=== PATIENT | male | born 1970 | race American Indian/Alaskan Native ===

== ENCOUNTER 2018-02-18 07:07 | Emergency (ER) | payer MEDICARE, MEDICAID ==
[2018-02-18 08:08] LABS: BASO # 0.1 K/uL (0.0-0.2); BASO % 0.9 % (0.0-2.0); EOS # 0.2 K/uL (0.0-0.7); EOS % 3.1 % (0.0-4.0); LYMPH # 2.7 K/uL (1.0-4.3); LYMPH % 44.5 % (20.0-40.0); MEAN CELL VOLUME 81.8 fL (80.0-94.0); MEAN CORPUSCULAR HEMOGLOBIN 27.4 pg (27.0-31.0); MEAN CORPUSCULAR HGB CONC 33.5 g/dL (33.0-37.0); MEAN PLATELET VOLUME 8.6 fL (7.2-11.7); MONO # 0.7 K/uL (0.0-0.8); MONO % 10.6 % (0.0-10.0); NEUT # 2.5 K/uL (1.8-7.0); NEUT % 40.9 % (50.0-75.0); RBC 5.48 Mil/uL (4.40-5.90); RED CELL DISTRIBUTION WIDTH 15.2 % (11.5-14.5); WHITE BLOOD COUNT 6.2 K/uL (4.8-10.8)
[2018-02-18 08:29] LABS: ALBUMIN 3.8 g/dL (3.5-5.0); ALT/SGPT 22 U/L (21-72); AST/SGOT 26 U/L (17-59); BLOOD UREA NITROGEN 20 mg/dL (9-20); CALCIUM 9.1 mg/dl (8.6-10.4); GFR AFRICAN-AMERICAN > 60; GFR NON-AFRICAN AMERICAN > 60
[2018-02-18 08:41] LABS: CK-MB 0.68 ng/mL (0.0-3.38)
--- NOTE | 2018-02-18 09:32 | C.PDOC ---
History Of Present Illness 47-year-old male with PMHx of HIV (compliant with HAART) presents to the emergency department with complaints of three-day duration of intermittent palpitations, described as fluttering on the right side of chest. He notices the symptoms more when he lies down. Patient denies cough, fever, SOB, chest pain, abdominal pain, nausea/vomiting, rash. Time Seen by Provider: 02/18/18 07:23 Chief Complaint (Nursing): Palpitations History Per: Patient History/Exam Limitations: no limitations Current Symptoms Are (Timing): Better Severity: Mild Past Medical History Reviewed: Historical Data, Nursing Documentation, Vital Signs Vital Signs: Last Vital Signs Temp 97.6 F 02/18/18 09:47 Pulse 56 L 02/18/18 09:47 Resp 16 02/18/18 09:47 BP 127/85 02/18/18 09:47 Pulse Ox 96 02/18/18 18:11 - Medical History PMH: HIV Family History: States: No Known Family Hx - Social History Hx Tobacco Use: No Hx Alcohol Use: No Hx Substance Use: No - Immunization History Hx Tetanus Toxoid Vaccination: No Hx Influenza Vaccination: No Hx Pneumococcal Vaccination: No Review Of Systems Except As Marked, All Systems Reviewed And Found Negative. Constitutional: Negative for: Fever, Chills Cardiovascular: Positive for: Palpitations. Negative for: Chest Pain Respiratory: Negative for: Cough, Shortness of Breath, SOB with Excertion Gastrointestinal: Negative for: Nausea, Vomiting, Abdominal Pain, Diarrhea Musculoskeletal: Positive for: Back Pain Skin: Negative for: Rash Neurological: Negative for: Weakness, Numbness Physical Exam - Physical Exam Appears: Well, Non-toxic, No Acute Distress Skin: Normal Color, Warm, Dry, No Diaphoretic, No Rash Head: Normacephalic Eye(s): bilateral: Normal Inspection Oral Mucosa: Moist Neck: Normal ROM Cardiovascular: Rhythm Regular (Tachycardic) Respiratory: Normal Breath Sounds, No Accessory Muscle Use, No Rales, No Rhonchi , No Wheezing Gastrointestinal/Abdominal: Normal Exam, Bowel Sounds, Soft, No Tenderness Extremity: Normal ROM, No Pedal Edema, No Calf Tenderness, No Swelling Neurological/Psych: Oriented x3 ED Course And Treatment - Laboratory Results Result Diagrams: 02/18/18 07:59 02/18/18 07:59 ECG: Interpreted By Me, Viewed By Me (sinus bradycardia 52bpm, normal axis, LVH , no acute ST/T wave changes) ECG Interpretation: Normal O2 Sat by Pulse Oximetry: 96 (RA) Pulse Ox Interpretation: Normal - Radiology CXR: Interpreted by Me, Viewed By Me CXR Interpretation: Yes: No Acute Disease. No: Infiltrates Progress Note: Bloodwork, EKG and CXR ordered and reviewed. Reevaluation Time: 09:35 Reassessment Condition: Improved (On reassessment, patient is resting comfortably, in no pain/distress. Blood work WNL. Patient is asymptomativc, well appearing and comfortable being discharged home. He was instructed to follow up with PMD in 1-2 days, and understands he should return to ED if symptoms worsen.) Disposition Counseled Patient/Family Regarding: Studies Performed, Diagnosis, Need For Followup - Disposition Referrals: Zachary Sharp MD [Medical Doctor] - Disposition: HOME/ ROUTINE Disposition Time: 09:35 Condition: STABLE Additional Instructions: FOLLOW UP WITH YOUR DOCTOR IN 1-2 DAYS, AND WITH CARDIOLOGY WITHIN 1 WEEK RETURN TO ER IF SYMPTOMS WORSEN Instructions: Palpitations (DC) Forms: [employer] (Ukrainian) Print Language: [place] - Clinical Impression Clinical Impression: Palpitations - Scribe Statement The provider has reviewed the documentation as recorded by the Scribe (Feliciano Brown) All medical record entries made by the Scribe were at my direction and personally dictated by me. I have reviewed the chart and agree that the record accurately reflects my personal performance of the history, physical exam, medical decision making, and the department course for this patient. I have also personally directed, reviewed, and agree with the discharge instructions and disposition.
[2018-02-18 09:47] VITALS: BP 127/85; PULSE 56; RESP 16; TEMP 97.6
[2018-02-18 11:12] VITALS: O2SAT 96
--- NOTE | 2018-02-18 11:26 | RAD ---
PROCEDURE: CHEST RADIOGRAPH, 1 VIEW HISTORY: Palpitations COMPARISON: None available. FINDINGS: LUNGS: Suspect minor bibasilar atelectasis left greater than right slight elevation left hemidiaphragm PLEURA: No pneumothorax or pleural fluid seen. CARDIOVASCULAR: Heart size appears upper limits of normal OSSEOUS STRUCTURES: No significant abnormalities. VISUALIZED UPPER ABDOMEN: Normal. OTHER FINDINGS: None. IMPRESSION: Mild bibasilar atelectasis left greater than right. Slight elevation left hemidiaphragm
--- NOTE | 2018-02-19 11:53 | CARD ---
APPROVED REPORT EKG Measurement Heart [id number] <Conclusion> Sinus bradycardia Minimal voltage criteria for LVH, may be normal variant ST elevation, probably due to early repolarization Borderline ECG
== END 2018-02-18 09:48 | disposition home or self-care (01) ==
LOC: C.ER 07:07
DX: R00.2 Palpitations (principal)